=== PATIENT | female | born 2000 | race Caucasian/White ===

== ENCOUNTER 2019-12-31 18:26 | Emergency (ER) | payer SELFPAY ==
[~2019-12-31] VITALS: Ht 170 cm; Wt 80.0 kg
--- NOTE | 2019-12-31 19:13 | ED Lower Extremity ---
General Chief Complaint: Lower Extremity Stated Complaint: L ANKLE INJ X 5 DAYS Nursing Triage Note: patient reports L ankle pain after rolling it 5 days prior to arrival Nursing Sepsis Screen: No Definite Risk Source: patient Exam Limitations: no limitations History of Present Illness Date Seen by Provider: Dec 31, 2019 Time Seen by Provider: 18:40 Initial Comments This 19-year-old young lady presents to the emergency room with left ankle pain and swelling after rolling her ankle edge of a sidewalk about 5 days ago. She heard/felt a popping at the time of injury. Initially she was ambulatory but today she states she has not been able to bear weight and walk. She has been taking ibuprofen. Allergies and Home Medications Allergies Coded Allergies: No Known Drug Allergies (Unverified , 12/31/19) Home Medications No Active Prescriptions or Reported Meds Patient Home Medication List Home Medication List Reviewed: Yes Review of Systems Constitutional: no symptoms reported EENTM: no symptoms reported Respiratory: no symptoms reported Cardiovascular: no symptoms reported Gastrointestinal: no symptoms reported Genitourinary: no symptoms reported Musculoskeletal: see HPI Skin: no symptoms reported Psychiatric/Neurological: No Symptoms Reported Past Hgidsof-Rokbne-Ykygjy Hx Past Med/Social Hx: Reviewed Nursing Past Med/Soc Hx Patient Social History Alcohol Use: Denies Use Recreational Drug Use: No Smoking Status: Current Everyday Smoker Recent Foreign Travel: No Contact w/Someone Who Travel: No Recent Infectious Disease Expo: No Seasonal Allergies Seasonal Allergies: No Past Medical History Surgeries: No Respiratory: No Cardiac: No Neurological: No : No Genitourinary: No Gastrointestinal: No Musculoskeletal: No Endocrine: No HEENT: No Cancer: No Psychosocial: No Integumentary: No Blood Disorders: No Physical Exam Vital Signs Vital Signs - First Documented 12/31/19 18:32 Temp 37.0 Pulse 95 Resp 18 B/P (MAP) 115/81 (92) Pulse Ox 99 Capillary Refill : Less Than 3 Seconds Height, Weight, BMI Height: '" Weight: lbs. oz. kg; 27.00 BMI Method: General Appearance: WD/WN, no apparent distress HEENT: normal ENT inspection Cardiovascular: regular rate, rhythm, no edema, no murmur Respiratory: lungs clear, normal breath sounds, no respiratory distress Legs: left leg non-tender, left leg normal inspection, left leg normal range of motion, left leg no evidence of injury Knees: left knee non-tender, left knee normal inspection, left knee normal range of motion, left knee no evidence of injury Ankles: left ankle bone tenderness, left ankle pain, left ankle swelling, left ankle other (swelling about the lateral ankle and proximal foot. Tenderness over the lateral malleolus. No joint instability. 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 See report below: NAME: DALTON PALACIOS [facility] REC#: [id number] PT STATUS: REG ER : 2000 PHYSICIAN: RUDDY STOVER MD ADMIT DATE: 12/31/19/ER Draft Date of Exam:12/31/19 ANKLE, LEFT, 3 VIEWS INDICATION: Left ankle pain. EXAMINATION: AP, oblique and lateral views of the left ankle were obtained. FINDINGS: No fracture or acute bony abnormality is seen. Joint spaces are unremarkable. There is some soft tissue swelling. IMPRESSION: Negative for bone abnormality. Dictated on workstation # [id number] Dict: 12/31/191906 Trans: 12/31/191922 PJE [id number] Interpreted by: INDRA SOSA MD Departure Impression Primary Impression: Left ankle sprain Qualified Codes: S93.402A - Sprain of unspecified ligament of left ankle, initial encounter Disposition: HOME, SELF-CARE Condition: Improved Departure-Patient Inst. Decision time for Depature: 19:11 Referrals: NO,LOCAL PHYSICIAN (PCP/Family) Primary Care Physician Patient Instructions: Ankle Sprain Add. Discharge Instructions: For pain you may use ibuprofen up to 600 mg every 6 hours as needed and/or Tylenol (acetaminophen) up to 1000 mg every 6 hours as needed. Rest, elevation, compressive wrapping, and 20 minute intervals of icing should also help with pain and swelling. Use crutches as needed to ambulate. Gradually increase level of activity as pain allows. Wear an ankle brace purchased [id number] whenever active for the next 6 weeks to reduce risk of reinjury. Follow-up with your primary care provider or return to the ER if you have worsening symptoms or are not improving as expected. All discharge instructions reviewed with patient and/or family. Voiced understanding. Scripts No Active Prescriptions or Reported Meds RUDDY STOVER MD Dec 31, 2019 19:13
--- NOTE | 2019-12-31 19:23 | Diagnostic Imaging Report ---
INDICATION: Left ankle pain. EXAMINATION: AP, oblique and lateral views of the left ankle were obtained. FINDINGS: No fracture or acute bony abnormality is seen. Joint spaces are unremarkable. There is some soft tissue swelling. IMPRESSION: Negative for bone abnormality. Dictated by: Dictated on workstation # [id number]
[2019-12-31 19:32] VITALS: BP 115/81
== END 2019-12-31 19:31 | disposition home or self-care (01) ==
LOC: ER 18:27
DX: S93.402A Sprain of unspecified ligament of left ankle, initial encounter (principal); F17.200 Nicotine dependence, unspecified, uncomplicated; X50.1XXA Overexertion from prolonged static or awkward postures, initial encounter
CPT/HCPCS: 73610

== ENCOUNTER 2021-04-23 12:16 | Emergency (ER) | payer SELFPAY ==
[~2021-04-23] VITALS: Ht 170 cm; Wt 86.0 kg
--- NOTE | 2021-04-23 12:50 | ED General ---
General Chief Complaint: General Problems/Pain Stated Complaint: VAGINAL DISCHARGE-GREEN,DIZZINESS Nursing Triage Note: PT AMB TO ED WITH C/O GREEN VAGINAL DISCHARGE. PT REPORTS SHE BELIEVES SHE MAY HAVE HAD A MISCARRIAGE BC SHE HAD VAGINAL BLEEDING FOR 5 DAYS, STATES SHE THOUGHT SHE WAS 3 MONTHS BECAUSE "SHE WAS EATING MORE," THOUGH SHE CONTINUED TO HAVE REGULAR PERIODS AND NEVER TOOK A TEST. SINCE, PT REPORTS HAVING GREEN, CREAMY VAGINAL DISCHARGE. PT REPORTS ALSO HAVING LOWER ABD PAIN, FEELS LIKE "THERE'S AIR IN HER HEAD," AND REPORTS SHE "SHIT HERSELF TWO NIGHTS AGO." DENIES N/V/D OR FEVER. PT ALSO REPORTS PAIN IN HER LEFT HAND/FINGER OVER THE LAST COUPLE OF WEEKS. BRUISING NOTED ON HAND. Source of Information: Patient Exam Limitations: No Limitations History of Present Illness Date Seen by Provider: Apr 23, 2021 Time Seen by Provider: 12:37 Initial Comments This is a 20 yo female who presented via POV with c/o green vaginal discharge, white "yogurt" foul smelling discharge, intermittent spotting, and lower abdominal pain over the past 5 days. States she checked herself into [facility] ED and left without being seen a few days ago. Also reports pain in her left hand from fall a few weeks ago that she would like checked out. She is sexually active with one partner "normally" but was recently sexually active with a new partner. States she used two medicated douches after intercourse. After using the second douche her symptoms began. Also would like to have test. Admits to using methamphetamines, but states last use was over a month ago. Allergies and Home Medications Allergies Coded Allergies: No Known Drug Allergies (Unverified , 12/31/19) Patient Home Medication List Home Medication List Reviewed: Yes Metronidazole (Metronidazole) 500 Mg Tablet, 500 MG PO BID Prescribed by: ILYA TRIPP on 04/23/21 6683 Review of Systems Review of Systems Constitutional: see HPI EENTM: no symptoms reported Respiratory: no symptoms reported Cardiovascular: no symptoms reported Gastrointestinal: see HPI Genitourinary: see HPI LMP: Apr 09, 2021 Musculoskeletal: no symptoms reported Skin: no symptoms reported Psychiatric/Neurological: No Symptoms Reported Hematologic/Lymphatic: No Symptoms Reported Immunological/Allergic: no symptoms reported Past Exefrmi-Hlojet-Vbgcig Hx Seasonal Allergies Seasonal Allergies: No Past Medical History Surgeries: No Respiratory: No Cardiac: No Neurological: No Genitourinary: No Gastrointestinal: No Musculoskeletal: No Endocrine: No HEENT: No Cancer: No Psychosocial: No Integumentary: No Blood Disorders: No Physical Exam Vital Signs Vital Signs - First Documented 04/23/21 12:26 Temp 35.8 Pulse 125 Resp 18 B/P (MAP) 122/102 (109) Pulse Ox 98 O2 Delivery Room Air Capillary Refill : Less Than 3 Seconds Height, Weight, BMI Height: '" Weight: lbs. oz. kg; 27.00 BMI Method: General Appearance: No Apparent Distress, WD/WN Eyes: Bilateral Eye Normal Inspection, Bilateral Eye PERRL, Bilateral Eye EOMI HEENT: PERRL/EOMI, Normal ENT Inspection, Pharynx Normal Neck: Full Range of Motion, Normal Inspection, Supple Respiratory: Lungs Clear, Normal Breath Sounds, No Accessory Muscle Use, No Respiratory Distress Cardiovascular: Regular Rate, Rhythm, No Edema Gastrointestinal: Normal Bowel Sounds, No Organomegaly, Soft; No Distended, No Guarding; Tenderness (suprapubic tenderness) Rectal: Normal Exam Genital/Rectal: Normal Genital Exam, Normal Vaginal Exam (copious amount of white/montaño discharge, no cervical motion tenderness, cervix closed ) Extremity: Normal Capillary Refill Neurologic/Psychiatric: Alert, Oriented x3, No Motor/Sensory Deficits Skin: Normal Color, Warm/Dry Progress/Results/Core Measures Suspected Sepsis SIRS Temperature: Pulse: 125 Respiratory Rate: 18 Laboratory Tests 04/23/21 13:00: White Blood Count 14.4H Blood Pressure 122 /102 Mean: 109 Laboratory Tests 04/23/21 13:00: Creatinine 0.74, Platelet Count 403H, Total Bilirubin 0.4 Results/Orders Lab Results Laboratory Tests Test 04/23/21 13:00 04/23/21 13:50 04/23/21 14:30 Range/Units White Blood Count 14.4 H 4.3-11.0 10^3/uL Red Blood Count 4.66 3.80-5.11 10^6/uL Hemoglobin 13.9 11.5-16.0 g/dL Hematocrit 41 35-52 % Mean Corpuscular Volume 88 80-99 fL Mean Corpuscular Hemoglobin 30 25-34 pg Mean Corpuscular Hemoglobin Concent 34 32-36 g/dL Red Cell Distribution Width 12.4 10.0-14.5 % Platelet Count 403 H 130-400 10^3/uL Mean Platelet Volume 8.8 L 9.0-12.2 fL Immature Granulocyte % (Auto) 0 % Neutrophils (%) (Auto) 82 H 42-75 % Lymphocytes (%) (Auto) 10 L 12-44 % Monocytes (%) (Auto) 7 0-12 % Eosinophils (%) (Auto) 1 0-10 % Basophils (%) (Auto) 0 0-10 % Neutrophils # (Auto) 11.7 H 1.8-7.8 10^3/uL Lymphocytes # (Auto) 1.4 1.0-4.0 10^3/uL Monocytes # (Auto) 1.0 0.0-1.0 10^3/uL Eosinophils # (Auto) 0.2 0.0-0.3 10^3/uL Basophils # (Auto) 0.0 0.0-0.1 10^3/uL Immature Granulocyte # (Auto) 0.1 0.0-0.1 10^3/uL Neutrophils % (Manual) 77 % Lymphocytes % (Manual) 9 % Monocytes % (Manual) 6 % Eosinophils % (Manual) 2 % Basophils % (Manual) 1 % Band Neutrophils 5 % Blood Morphology Comment NORMAL Sodium Level 135 135-145 MMOL/L Potassium Level 3.2 L 3.6-5.0 MMOL/L Chloride Level 102 98-107 MMOL/L Carbon Dioxide Level 20 L 21-32 MMOL/L Anion Gap 13 5-14 MMOL/L Blood Urea Nitrogen 5 L 7-18 MG/DL Creatinine 0.74 0.60-1.30 MG/DL Estimat Glomerular Filtration Rate 98 BUN/Creatinine Ratio 7 Glucose Level 98 70-105 MG/DL Calcium Level 9.3 8.5-10.1 MG/DL Corrected Calcium 9.4 8.5-10.1 MG/DL Total Bilirubin 0.4 0.1-1.0 MG/DL Aspartate Amino Transf (AST/SGOT) 12 5-34 U/L Alanine Aminotransferase (ALT/SGPT) 11 0-55 U/L Alkaline Phosphatase 85 40-136 U/L Total Protein 7.4 6.4-8.2 GM/DL Albumin 3.9 3.2-4.5 GM/DL Serum Test, Qualitative NEGATIVE NEGATIVE Urine Color YELLOW Urine Clarity CLEAR Urine pH 6.0 5-9 Urine Specific [place] <=1.005 1.016-1.022 Urine Protein NEGATIVE NEGATIVE Urine Glucose (UA) NEGATIVE NEGATIVE Urine Ketones NEGATIVE NEGATIVE Urine Nitrite NEGATIVE NEGATIVE Urine Bilirubin NEGATIVE NEGATIVE Urine Urobilinogen 0.2 < = 1.0 MG/DL Urine Leukocyte Esterase NEGATIVE NEGATIVE Urine RBC (Auto) NEGATIVE NEGATIVE Urine RBC NONE /HPF Urine WBC RARE /HPF Urine Squamous Epithelial Cells NONE /HPF Urine Crystals NONE /LPF Urine Bacteria NEGATIVE /HPF Urine Casts NONE /LPF Urine Mucus NEGATIVE /LPF Urine Culture Indicated NO Urine Opiates Screen NEGATIVE NEGATIVE Urine Oxycodone Screen NEGATIVE NEGATIVE Urine Methadone Screen NEGATIVE NEGATIVE Urine Propoxyphene Screen NEGATIVE NEGATIVE Urine Barbiturates Screen NEGATIVE NEGATIVE Ur Tricyclic Antidepressants Screen NEGATIVE NEGATIVE Urine Phencyclidine Screen NEGATIVE NEGATIVE Urine Amphetamines Screen POSITIVE H NEGATIVE Urine Methamphetamines Screen NEGATIVE NEGATIVE Urine Benzodiazepines Screen NEGATIVE NEGATIVE Urine Cocaine Screen NEGATIVE NEGATIVE Urine Cannabinoids Screen NEGATIVE NEGATIVE Chlamydia DNA Probe Not Detected Not Detected Neisseria gonorrhoeae DNA Probe Dectected H Not Detected Micro Results Microbiology 04/23/21 Genital Culture - Preliminary, Resulted Gardnerella vaginalis 04/23/21 ELSIE Preparation - Final, Resulted 04/23/21 Wet Prep - Final, Resulted My Orders Orders - ILYA TRIPP APRN Ua Culture If Indicated (04/23/21 12:34) Cbc With Automated Diff (04/23/21 12:46) Comprehensive Metabolic Panel (04/23/21 12:46) Hcg,Qualitative Serum (04/23/21 12:46) Wet Prep (04/23/21 12:46) Neisseria Gonorrhea Swab (04/23/21 12:46) Genital Culture (04/23/21 12:46) Elsie Prep (04/23/21 12:46) Chlamydia Trachomatis Swab (04/23/21 12:46) Ns Iv 1000 Ml (Sodium Chloride 0.9%) (04/23/21 13:00) Ondansetron Injection (Zofran Injectio (04/23/21 13:00) Manual Differential (04/23/21 13:00) Ct Abdomen/Pelvis W (04/23/21 13:16) Ketorolac Injection (Toradol Injection) (04/23/21 14:00) Iohexol Injection (Omnipaque 350 Mg/Ml 1 (04/23/21 14:00) Received Contrast (Hold Metformin- Contr (04/23/21 14:00) Ns (Ivpb) (Sodium Chloride 0.9% Ivpb Bag (04/23/21 14:00) Hand, Left, 3 Views (04/23/21 13:57) Drug Screen Stat (Urine) (04/23/21 13:50) Ceftriaxone (Rocephin) (04/24/21 09:00) Azithromycin Tablet (Zithromax Tablet) (04/23/21 14:45) Ceftriaxone (Rocephin) (04/23/21 15:00) Medications Given in ED Vital Signs/I&O 04/23/21 04/23/21 12:26 15:08 Temp 35.8 Pulse 125 90 Resp 18 16 B/P (MAP) 122/102 (109) 109/70 Pulse Ox 98 98 O2 Delivery Room Air Room Air Capillary Refill : Less Than 3 Seconds Blood Pressure Mean: 109 Progress Note : Progress Note After reviewing labs and imaging patient stated "will you just give me the shot and 4 pills so I can get rid of this smell". Informed her that she will need to take the prescribed Flagyl to help with her vaginal discharge/smell. Given Rocephin 250mg IV and Azithromycin 1gm PO. Will have her follow up outpatient with her primary care provider for fracture her left 4th metacarpal. Discharge POC reviewed and she is agreeable with plan. Diagnostic Imaging Diagonstic Imaging: Xray Plain Films/CT/US/NM/MRI: hand Comments [facility] [place] NAME: DALTON PALACIOS Marcela [facility] REC#: [id number] PT STATUS: REG ER : 2000 PHYSICIAN: ILYA TRIPP APRN ADMIT DATE: 04/23/21/ER Signed Date of Exam:04/23/21 HAND, LEFT, 3 VIEWS HAND, LEFT, 3 VIEWS INDICATION: Left hand injury from fall COMPARISON: None available. TECHNIQUE: 3 views left hand FINDINGS: There is an oblique fracture in the mid diaphysis of the 4th metacarpal. There is minimal fragmentation of the cortex. The 2 dominant fracture fragments of the metacarpal are not angulated or displaced. No additional acute fracture. IMPRESSION: Acute minimally displaced fracture of the 4th metacarpal midshaft. Dictated by: Dictated on workstation # [id number] Dict: 04/23/21 1432 Trans: 04/23/21 1446 [employer] [facility] [id number] Interpreted by: MONAE LAU MD Electronically signed by: MONAE LAU MD 04/23/21 1446 Reviewed: Reviewed by Me Diagonstic Imaging: CT Plain Films/CT/US/NM/MRI: abdomen Comments [facility] [place] NAME: DALTON PALACIOS [facility] REC#: [id number] PT STATUS: DEP ER : 2000 PHYSICIAN: ILYA TRIPP JOCKEY VALET ADMIT DATE: 04/23/21/ER Signed Date of Exam:04/23/21 CT ABDOMEN/PELVIS W PROCEDURE: CT abdomen and pelvis with contrast. TECHNIQUE: Multiple contiguous axial images were obtained through the abdomen and pelvis after administration of intravenous contrast. Auto Exposure Controls were utilized during the CT exam to meet ALARA standards for radiation dose reduction. All CT scans use one or more of the following dose optimizing techniques: Automated exposure control, MA and/or KvP adjustment based on patient size and exam type or iterative reconstruction. INDICATION: Abnormal discharge, abdominal pain, pelvic pain, loss of bowel control. FINDINGS: The lung bases are clear. The gallbladder is physiologically contracted. Solid organs, vascular structures, and bowel are unremarkable. There is no free air or free fluid. There is no lymphadenopathy. The appendix is normal. The uterus is intact. Urinary bladder is grossly normal. There is no abscess. Visualized pelvic floor is unremarkable. Osseous structures are age appropriate. IMPRESSION: Negative CT abdomen and pelvis. Dictated by: Dictated on workstation # [id number] Dict: 04/23/21 1433 Trans: 04/23/21 1542 [id number] Interpreted by: RAMEZ ARNOLD Electronically signed by: RAMEZ ARNOLD 04/23/21 1542 Reviewed: Reviewed by Me Departure Impression Primary Impression: Fracture of fourth metacarpal bone of left hand Additional Impression: Bacterial vaginosis Disposition: 01 HOME, SELF-CARE Condition: Improved Departure-Patient Inst. Decision time for Depature: 14:46 Referrals: NO,LOCAL PHYSICIAN (PCP/Family) Primary Care Physician Patient Instructions: Bacterial Vaginosis (DC) Add. Discharge Instructions: Plan: 1. Avoid douching as this can worsen your symptoms. 2. Take all of your prescriptions as directed and complete full course. 3. Follow up with your doctor if your symptoms persist. 4. Return for any new, concerning, or worsening symptoms. All discharge instructions reviewed with patient and/or family. Voiced understanding. Scripts Metronidazole (Metronidazole) 500 Mg Tablet 500 MG PO BID for 7 Days, #14 TAB 0 Refills Prov: ILYA TRIPP JOCKEY VALET 04/23/21 ILYA TRIPP JOCKEY VALET Apr 23, 2021 12:50
[2021-04-23] MEDS ORDERED: ONDANSETRON 4 MG/2 ML (SDV) Z0FRAN IVP ONE (13:00)
[2021-04-23] MEDS ORDERED: NS IV 1000 ML 1,000 ML IV ONE (13:00)
[2021-04-23 13:08] LABS: BASOPHILS % (AUTO) 0 % (0-10); EOSINOPHILS # (AUTO) 0.2 10^3/uL (0.0-0.3); EOSINOPHILS % (AUTO) 1 % (0-10); HEMATOCRIT 41 % (35-52); HEMOGLOBIN 13.9 g/dL (11.5-16.0); LYMPHOCYTES # (AUTO) 1.4 10^3/uL (1.0-4.0); LYMPHOCYTES % (AUTO) 10 % (12-44); MEAN CORPUSCULAR HEMOGLOBIN 30 pg (25-34); MEAN CORPUSCULAR HGB CONC 34 g/dL (32-36); MEAN CORPUSCULAR VOLUME 88 fL (80-99); MEAN PLATELET VOLUME 8.8 fL (9.0-12.2); MONOCYTES % (AUTO) 7 % (0-12); NEUTROPHILS # (AUTO) 11.7 10^3/uL (1.8-7.8); NEUTROPHILS % (AUTO) 82 % (42-75); PLATELET COUNT 403 10^3/uL (130-400); WHITE BLOOD COUNT 14.4 10^3/uL (4.3-11.0)
[2021-04-23 13:26] LABS: ALBUMIN 3.9 GM/DL (3.2-4.5)
[2021-04-23 13:27] LABS: POTASSIUM 3.2 MMOL/L (3.6-5.0)
[2021-04-23 13:28] LABS: CALCIUM 9.3 MG/DL (8.5-10.1)
[2021-04-23 13:29] LABS: TOTAL PROTEIN 7.4 GM/DL (6.4-8.2)
[2021-04-23 13:31] LABS: BAND NEUTROPHILS 5 %; BASOPHILS % (MANUAL) 1 %; BILIRUBIN,TOTAL 0.4 MG/DL (0.1-1.0); EOSINOPHILS % (MANUAL) 2 %; LYMPHOCYTES % (MANUAL) 9 %; MONOCYTES % (MANUAL) 6 %; NEUTROPHILS % (MANUAL) 77 %; RBC MORPH NORMAL
[2021-04-23 13:33] LABS: CREATININE SERUM 0.74 MG/DL (0.60-1.30)
[2021-04-23] MEDS ORDERED: IOHEXOL 350 MG/ML 100 ML (OMNIPAQUE 350) VIAL IV ONE (14:00)
[2021-04-23] MEDS ORDERED: KETOROLAC 30 MG/ML VIAL IVP ONE (14:00)
[2021-04-23] MEDS ORDERED: NS 100 ML (IVPB) BAG IV ONE (14:00)
[2021-04-23] MEDS ORDERED: HOLD METFORMIN - RECEIVED CONTRAST 20 ML VIAL IV SCH (14:00)
[2021-04-23 14:04] LABS: BILIRUBIN,URINE NEGATIVE (NEGATIVE); CLARITY,URINE CLEAR; COLOR,URINE YELLOW; GLUCOSE, URINE (UA) NEGATIVE (NEGATIVE); KETONES,URINE NEGATIVE (NEGATIVE); LEUKOCYTE ESTERASE ,URINE NEGATIVE (NEGATIVE); NITRITE,URINE NEGATIVE (NEGATIVE); PROTEIN,URINE NEGATIVE (NEGATIVE)
[2021-04-23 14:14] LABS: BACTERIA,URINE NEGATIVE /HPF; WBC,URINE RARE /HPF
[2021-04-23 14:16] LABS: AMPHETAMINE SCREEN, URINE POSITIVE (NEGATIVE); BENZODIAZEPINES SCREEN URINE NEGATIVE (NEGATIVE); COCAINE SCREEN URINE NEGATIVE (NEGATIVE)
[2021-04-23 14:17] LABS: BARBITURATE SCREEN URINE NEGATIVE (NEGATIVE); CANNABINOID SCREEN, URINE NEGATIVE (NEGATIVE); METHADONE STAT NEGATIVE (NEGATIVE); METHAMPHETAMINE SCREEN URINE S NEGATIVE (NEGATIVE); OPIATE SCREEN URINE NEGATIVE (NEGATIVE); OXYCODONE STAT NEGATIVE (NEGATIVE); PROPOXYPHENE STAT NEGATIVE (NEGATIVE); TRICYCLIC ANTIDEPRESSANTS SCRE NEGATIVE (NEGATIVE)
--- NOTE | 2021-04-23 14:36 | Diagnostic Imaging Report ---
HAND, LEFT, 3 VIEWS INDICATION: Left hand injury from fall COMPARISON: None available. TECHNIQUE: 3 views left hand FINDINGS: There is an oblique fracture in the mid diaphysis of the 4th metacarpal. There is minimal fragmentation of the cortex. The 2 dominant fracture fragments of the metacarpal are not angulated or displaced. No additional acute fracture. IMPRESSION: Acute minimally displaced fracture of the 4th metacarpal midshaft. Dictated by: Dictated on workstation # [id number]
--- NOTE | 2021-04-23 14:38 | Diagnostic Imaging Report ---
PROCEDURE: CT abdomen and pelvis with contrast. TECHNIQUE: Multiple contiguous axial images were obtained through the abdomen and pelvis after administration of intravenous contrast. Auto Exposure Controls were utilized during the CT exam to meet ALARA standards for radiation dose reduction. All CT scans use one or more of the following dose optimizing techniques: Automated exposure control, MA and/or KvP adjustment based on patient size and exam type or iterative reconstruction. INDICATION: Abnormal discharge, abdominal pain, pelvic pain, loss of bowel control. FINDINGS: The lung bases are clear. The gallbladder is physiologically contracted. Solid organs, vascular structures, and bowel are unremarkable. There is no free air or free fluid. There is no lymphadenopathy. The appendix is normal. The uterus is intact. Urinary bladder is grossly normal. There is no abscess. Visualized pelvic floor is unremarkable. Osseous structures are age appropriate. IMPRESSION: Negative CT abdomen and pelvis. Dictated by: Dictated on workstation # [id number]
[2021-04-23] MEDS ORDERED: AZITHROMYCIN 250 MG TAB (ZITHROMAX) PO ONE (14:45)
[2021-04-23] MEDS ORDERED: METR-145 PO (14:54)
[2021-04-23] MEDS ORDERED: cefTRIAXone 250 MG/2.5 ML ML ONE (15:00)
[2021-04-23 15:08] VITALS: BP 109/70
[2021-04-24] MEDS ORDERED: CEFTRIAXONE IV ONE (09:00)
== END 2021-04-23 15:08 | disposition home or self-care (01) ==
LOC: EDUNIT# 12:16 → ER 12:20
DX: S62.325A Displaced fracture of shaft of fourth metacarpal bone, left hand, initial encounter for closed fracture (principal); N76.0 Acute vaginitis; X58.XXXA Exposure to other specified factors, initial encounter
CPT/HCPCS: 36415; 73130; 74177; 80053; 80306; 81000; 84703; 85007; 85027; 87070; 87077; 87185; 87205; 87210; 87491; 87591